=== PATIENT | female | born 1985 | race Caucasian/White ===

== ENCOUNTER 2019-02-27 18:52 | Emergency (ER) | payer OTHER ==
[~2019-02-27] VITALS: Ht 170.2 cm; Wt 108.9 kg
[~2019-02-27 18:52] MED LIST: CLEOCIN HCL300 MG PO; FLAGYL500 MG PO; K-DUR 20 MEQ T20 MEQ PO; MIRALAX255 GM PO; NORCO 5-325 TA1 EACH PO; PERCOCET 5-3251 EACH PO; POTASSIUM20 PO; PROBIOTIC & AC1 EACH PO; ZOFRAN4 MG PO
[2019-02-27] MEDS ORDERED: LEVOXYL88 MCG PO (19:04)
[2019-02-27] MEDS ORDERED: CYTOMEL 5MCG TA5 MC1 PO (19:04)
[2019-02-27] MEDS ORDERED: PRISTIQ50 MG PO (19:05)
[2019-02-27] MEDS ORDERED: ZYRTEC10 M5 PO (19:06)
[2019-02-27] MEDS ORDERED: PROTONIX 20 MG20 MG PO (19:06)
[2019-02-27 19:48] LABS: ABSOLUTE BASOPHILS 0.1 thou/uL (0.0-0.2); ABSOLUTE EOSINOPHILS 0.2 thou/uL (0.0-0.7); ABSOLUTE NEUTROPHILS 5.9 thou/uL (1.6-8.1); BASOPHILS 0.8 %; EOSINOPHILS 1.5 %; HEMATOCRIT 42.5 % (37.0-47.0); HEMOGLOBIN 14.3 gm/dL (12.0-15.0); LYMPHOCYTES 30.1 %; MCH 28.3 pg (26.0-34.0); MCHC 33.5 g/dL (28.0-37.0); MCV 84.5 fL (80.0-100.0); MONOCYTES 9.5 %; MPV 10.3 fl. (7.2-11.1); NUCLEATED RBCS 0 /100WBC; PLATELET COUNT* 270 thou/uL (150-400); POLYS 58.1 %; RBC 5.03 mil/uL (4.20-5.00); RDW-CV 13.4 % (10.5-14.5); WBC 10.1 thou/uL (4.0-11.0)
[2019-02-27 19:51] LABS: URINE BILIRUBIN NEGATIVE (Negative); URINE BLOOD NEGATIVE (Negative); URINE CLARITY CLEAR; URINE COLOR YELLOW; URINE GLUCOSE-RANDOM NEGATIVE (Negative); URINE KETONES 2+ (Negative); URINE LEUKOCYTES-REFLEX NEGATIVE (Negative); URINE NITRITE-REFLEX NEGATIVE (Negative); URINE PROTEIN NEGATIVE (Negative); URINE UROBILINOGEN 0.2 E.U./dl (0.2-1.0)
[2019-02-27 19:57] LABS: AMP/METHAMP Negative (Negative); BARBITURATES Negative (Negative); BENZODIAZEPINES Negative (Negative); COCAINE Negative (Negative); METHADONE Negative (Negative); OPIATES Negative (Negative); PCP Negative (Negative); THC POSITIVE (Negative)
[2019-02-27 20:04] LABS: CALCIUM 9.8 mg/dL (8.5-10.1); CREATININE 0.9 mg/dL (0.6-1.3); POTASSIUM 3.5 mmol/L (3.5-5.1)
[2019-02-27 20:09] LABS: ALBUMIN 4.2 g/dL (3.4-5.0); TOTAL BILIRUBIN 0.5 mg/dL (<0.1-1.0); TOTAL PROTEIN 8.5 g/dL (6.4-8.2)
[2019-02-27 22:55] VITALS: BP 123/57
== END 2019-02-27 22:55 | disposition home or self-care (01) ==
LOC: M.ERS 18:52
PROVIDERS: Physician Assistant
DX: E86.0 Dehydration (principal); Z88.1 Allergy status to other antibiotic agents; Z88.2 Allergy status to sulfonamides; Z98.51 Tubal ligation status; Z98.890 Other specified postprocedural states; Z90.49 Acquired absence of other specified parts of digestive tract; Z79.899 Other long term (current) drug therapy